=== PATIENT | female | born 1990 | race African-American/Black ===

== ENCOUNTER 2021-11-21 22:12 | Emergency (ER) | payer BC ==
[2021-11-21 22:22] VITALS: BP 109/77; PULSE 74; RESP 20; TEMP 98.3; BMI 22.4
[2021-11-21] MEDS ORDERED: ACETAMINOPHEN 1000 MG/100 ML BAG IVPB ONE (23:42)
[2021-11-21] MEDS ORDERED: METOCLOPRAMIDE HCL INJECTION 10 MG/2 ML VIAL IVPUSH ONE (23:44)
[2021-11-21] MEDS ORDERED: ACETAMINOPHEN INJECTION 100 ML IVPB ONE (23:59)
[2021-11-21] MEDS ORDERED: METOCLOPRAMIDE HCL INJECTION 10 MG/2 ML VIAL ONE (23:59)
[2021-11-22 00:35] LABS: BASO % 0.3 % (0-2.0); EOS % 1.1 % (0-4.5); HEMOGLOBIN 11.2 GM/dL (10.7-15.3); LYMPH % 39.7 % (8-40); MCH 26.2 pg (25.7-33.7); MEAN CELL VOLUME 81.8 fl (80-96); MEAN PLT VOLUME 7.8 fl (7.5-11.1); MONO % 7.9 % (3.8-10.2); PLATELET COUNT 267 10^3/uL (134-434); RBC 4.27 M/mm3 (3.60-5.2); RDW 18.8 % (11.6-15.6); WHITE BLOOD COUNT 3.7 K/mm3 (4.0-10.0)
[2021-11-22 00:40] LABS: BLOOD UREA NITROGEN 6.1 mg/dL (7-18); CALCIUM 8.8 mg/dL (8.5-10.1)
[2021-11-22 00:44] LABS: CREATININE 0.7 mg/dL (0.55-1.3)
[2021-11-22 00:45] LABS: BILIRUBIN,TOTAL 0.3 mg/dL (0.2-1)
== END 2021-11-22 02:35 | disposition home or self-care (01) ==
LOC: JER 22:12
PROC: 3E0333Z Introduction of Anti-inflammatory into Peripheral Vein, Percutaneous Approach (ICD-10-PCS; principal; 2021-11-21)
PROC: 3E033GC Introduction of Other Therapeutic Substance into Peripheral Vein, Percutaneous Approach (ICD-10-PCS; 2021-11-21)
DX: R51.9 Headache, unspecified (principal)
CPT/HCPCS: 36415; 80053; 84703; 85025; 99284-25

== ENCOUNTER 2022-03-25 22:58 | Emergency (ER) | payer BC ==
[2022-03-25 23:06] VITALS: BMI 22.6
[2022-03-25] MEDS ORDERED: IBUPROFEN 600 MG TABLET (FP) PO ONE ×2 (23:15→23:24)
[2022-03-26 01:29] VITALS: PULSE 109; RESP 18; TEMP 100.1
[2022-03-26] MEDS ORDERED: ACETAMINOPHEN 325 MG TABLET (FP) PO ONE (01:31)
[2022-03-26] MEDS ORDERED: ACETAMINOPHEN 325 MG TABLET (FP) ONE (01:32)
[2022-03-26 01:36] VITALS: BP 105/58
== END 2022-03-26 01:35 | disposition home or self-care (01) ==
LOC: JER 22:58
DX: J09.X2 Influenza due to identified novel influenza A virus with other respiratory manifestations (principal)
CPT/HCPCS: 71046-TC-FY; 99283-25